=== PATIENT | male | born 1950 | race Caucasian/White ===

== ENCOUNTER 2019-07-10 13:58 | Inpatient (IN) | payer OTHER ==
[~2019-07-10] VITALS: Ht 182.9 cm; Wt 93.0 kg
--- NOTE | ~2019-07-10 | HEMODYNAMI ---
PATIENT:LA BAXTER MEDICAL RECORD: [id number] : 46 LOCATION:D.KS D.2236 ADMISSION DATE: 07/10/19 Generatedon:07/15/201914:10 Patient name: LA BAXTER Patient #: [id number] SSN: : 1950 Date of study: 07/15/2019 Page: Of Hemodynamic Procedure Report Patient Data Patient Demographics Procedure consent was obtained First Name: LA Gender: Male Last Name: VEE : 1950 Patient #: [id number] Age: 68 year(s) Race: Unknown Additional ID: [id number] Contact details Address: [address] [place] [address] State: [place] City: [facility] Zip code: [address] Past Medical History Allergies: No known allergies Admission Admission Data Admission Date: 07/10/2019 Admission Time: 20:03 Room #: 2236 Procedure Procedure Types Cath Procedure Peripheral Cath Diagnostic Procedure Miscellaneous Epidural Steroid Injection Procedure Description Procedure Date Procedure Date: 07/15/2019 Procedure Start Time: 13:58 Procedure Staff Name Function Akash Hwang MD Performing Physician Geronimo Stahl RT Monitor Vivi Perez RN Nurse Rachelle Block RN Nurse Procedure Data Cath Procedure Fluoroscopy Diagnostic fluoroscopy Total fluoroscopy Time: 0.1 time: 0.1 min min Diagnostic fluoroscopy Total fluoroscopy dose: 1 dose: 1 mGy mGy Hemodynamics Rest Pre Cath Intra NCS Post Cath Procedure Log Time Note 13:55:41 Vivi Perez RN sent for patient. Start room use. 13:55:59 Patient received from Other to IR Alert and oriented. Tansferred to table in Supine position. 13:56:02 Signed procedure consent form obtained from patient. 13:56:03 Correct patient and procedure confirmed by team. 13:56:07 Pre-procedure instructions explained to patient. 13:56:07 Pre-op teaching completed and patient verbalized understanding. 13:56:14 Patient allergic to No known allergies 13:56:23 Is patient on blood thinner?No 13:56:30 Lumbar area was prepped with betadine and draped in sterile fashion 13:56:44 KIT EPIDURAL CATHETERIZATION opened to sterile field. 13:58:08 Physician arrived 13:58:08 --------ALL STOP TIME OUT------ 13:58:09 Final Timeout: patient, procedure, and site verified with staff and physician. All members of the team are in agreement. 13:58:14 Lumbar site verified by team. 13:58:22 Sedation plan: IV Moderate Sedation Medication:Lidocaine 13:58:44 Procedure started. 13:58:44 Full Disclosure recording started 13:58:49 Local anesthetic to Lumbar area with Lidocaine 1% by Akash Hwang MD.INITIAL ACCESS ONLY 14:08:52 Procedure ended.(Physican Out) 14:09:09 Fluoroscopy time 00.10 minutes. 14:09:12 Fluoroscopy dose: 1 mGy 14:09:12 Flurop Dose total: 1 14:09:42 bandaide applied site stable pt sent to room Device Usage Item Name Manufacture Quantity Catalog Hospital Part Current Minima l Lot# / Number Charge Number Stock Stock Serial# Code KIT EPIDURAL Teleflex 1 [id number] CATHETERIZATION Signature Audit [place] Stage Time Signature Unsigned Intra-Procedure 07/15/2019 Geronimo 2:09:59 PM Maribeth RT (R) (CV) [address] [address] [place] [address]
[2019-07-10] MEDS ORDERED: VITAMIN B-121000 MCG PO (14:07)
[2019-07-10] MEDS ORDERED: SEROQUEL25 MG PO (14:08)
[2019-07-10] MEDS ORDERED: DONEPEZIL HCL10 MG PO (14:08)
[2019-07-10] MEDS ORDERED: HYTRIN1 MG PO (14:09)
[2019-07-10 14:42] LABS: BASOPHILS 0.1 % (0-2); EOSINOPHILS 0 % (0-7); HEMATOCRIT 42.3 % (42.0-54.0); HEMOGLOBIN 14.3 g/dL (13.5-17.5); IMMATURE GRANULOCYTES 0.4 % (0-5); LYMPHOCYTES 8.6 % (15-50); MCH 31.2 pg (26.0-34.0); MCHC 33.8 g/dL (31.0-37.0); MCV 92.4 fL (80.0-100.0); MEAN PLATELET VOLUME 10.1 fL (7.4-10.4); MONOCYTES 4.2 % (2-11); NEUTROPHILS 86.7 % (40-80); PLATELET COUNT 301 10x3/uL (130-400); RBC 4.58 10x6/uL (4.20-6.10); RDW 12.3 % (11.5-14.5); WBC 13.1 10x3/uL (4.8-10.8)
[2019-07-10 14:49] LABS: INR 4.82 (0.85-1.17); PROTIME 44.1 SECONDS (11.6-15.0)
[2019-07-10 14:57] LABS: APTT 42.4 SECONDS (22.8-39.4)
[2019-07-10 15:22] LABS: ALKALINE PHOSPHATASE 95 U/L (30-120); ALT (SGPT) 21 U/L (10-68); AMYLASE - SERUM 108 U/L (25-115); BILIRUBIN - TOTAL 0.71 mg/dL (0.2-1.3); CALCIUM 9.2 mg/dL (8.5-10.1); CARBON DIOXIDE 25.5 mmol/L (21.0-32.0); CKMB 0.1 U/L (0.0-3.6); CREATINE KINASE 58 UL (21-232); CREATININE - SERUM 0.8 mg/dL (0.6-1.3); GLUCOSE 148 mg/dL (74-106); LIPASE 232 U/L (73-393); PROTEIN - SERUM 8.5 g/dL (6.4-8.2); UREA NITROGEN 12 mg/dL (7-18); eGFR NON AFRICAN AMERICAN > 90 mL/min (90-120)
--- NOTE | 2019-07-10 15:33 | NUR ---
PTS SHIRTS HAD TO CUT OFF, DUE TO EMESIS ALL OVER THEM AND UNABLE TO ASSIST WITH TAKING THEM OFF.
[2019-07-10 15:38] LABS: ALBUMIN 4.2 g/dL (3.4-5.0); CALC OSMOLALITY 281 mosm/kg (275-300); CHLORIDE - SERUM 102 mmol/L (98-107); POTASSIUM - SERUM 4.4 mmol/L (3.5-5.1); SODIUM 140 mmol/L (136-145); TROPONIN-I < 0.017 ng/mL (0.000-0.060)
[2019-07-10 15:39] LABS: MAGNESIUM - SERUM 2.4 mg/dL (1.8-2.4)
--- NOTE | 2019-07-10 16:04 | NUR ---
AT BEDSIDE, STATES SHE HAD PT CHECKED FOR A UTI YESTERDAY AND DOES NOT WANT IT DONE TODAY
--- NOTE | 2019-07-10 17:40 | NUR ---
PT ACTIVELY VOMITING AT THIS TIME. PT VOMITED UP MAG CITRATE.
[2019-07-10 17:45] VITALS: BP 169/83
--- NOTE | 2019-07-10 17:45 | NUR ---
STATING PT IS IN "HORRIBLE PAIN" AND NEEDS SOMETHING FOR PAIN RELIEF. ADVISED EDP ANJEL MCCANN
[2019-07-10 19:13] VITALS: BP 166/93
[2019-07-10 19:33] LABS: BILIRUBIN NEGATIVE (NEGATIVE); GLUCOSE NEGATIVE (NEGATIVE); KETONE NEGATIVE (NEGATIVE); NITRITE NEGATIVE (NEGATIVE); UROBILINOGEN NORMAL (NORMAL)
--- NOTE | 2019-07-10 22:07 | NUR ---
PT ARRIVED ON UNIT VIA STRETCHER ESCORTED BY ER NURSE. TRANSFERRED TO BED AND CHANGED BRIEF AND BED PADS DUE TO INCONTINENCE. POSITIONED IN BED FOR COMFORT AND ACTIVATED BED ALARM FOR SAFETY.
[2019-07-10 22:11] VITALS: BP 142/55; BMI 27.8
--- NOTE | 2019-07-10 22:50 | NUR ---
STARTED IV FLUIDS AND ANTIBIOTICS PER ORDER. GAVE LACTULOSE PO WITH WIFES ASSISTANCE.
[2019-07-11] VITALS: BP 142/55
--- NOTE | 2019-07-11 01:00 | NUR ---
PT REFUSING TELEMETRY....WILL NOT KEEP ON. COMPLETED ORDER AND RETURNED TELEMETRY UNIT TO PRESETTER OPERATOR.
--- NOTE | 2019-07-11 01:30 | NUR ---
GAVE MORPNINE 2 MG IVP FOR C/O PAIN IN BACK.
--- NOTE | 2019-07-11 03:50 | NUR ---
PT HAS HAD X5 LOOSE INCONTINENT STOOLS SINCE ARRIVING ON UNIT.
[2019-07-11 04:00] VITALS: BP 146/71
[2019-07-11 06:50] LABS: BASOPHILS 0.2 % (0-2); EOSINOPHILS 0.3 % (0-7); HEMATOCRIT 36.8 % (42.0-54.0); HEMOGLOBIN 12.1 g/dL (13.5-17.5); IMMATURE GRANULOCYTES 0.2 % (0-5); LYMPHOCYTES 24.7 % (15-50); MCH 30.6 pg (26.0-34.0); MCHC 32.9 g/dL (31.0-37.0); MCV 92.9 fL (80.0-100.0); MEAN PLATELET VOLUME 10.4 fL (7.4-10.4); MONOCYTES 11.4 % (2-11); NEUTROPHILS 63.2 % (40-80); PLATELET COUNT 298 10x3/uL (130-400); RBC 3.96 10x6/uL (4.20-6.10); RDW 12.7 % (11.5-14.5); WBC 13.3 10x3/uL (4.8-10.8)
[2019-07-11 06:56] LABS: ALKALINE PHOSPHATASE 73 U/L (30-120); ALT (SGPT) 20 U/L (10-68); BILIRUBIN - TOTAL 0.62 mg/dL (0.2-1.3); CALCIUM 8.3 mg/dL (8.5-10.1); CARBON DIOXIDE 29.4 mmol/L (21.0-32.0); CHLORIDE - SERUM 107 mmol/L (98-107); CREATININE - SERUM 0.9 mg/dL (0.6-1.3); POTASSIUM - SERUM 4.2 mmol/L (3.5-5.1); SODIUM 142 mmol/L (136-145); UREA NITROGEN 10 mg/dL (7-18); eGFR NON AFRICAN AMERICAN 89 mL/min (90-120)
[2019-07-11 06:57] LABS: CALC OSMOLALITY 281 mosm/kg (275-300); GLUCOSE 97 mg/dL (74-106)
[2019-07-11 07:20] LABS: APTT 32.6 SECONDS (22.8-39.4); INR 1.06 (0.85-1.17); PROTIME 13.7 SECONDS (11.6-15.0)
[2019-07-11 08:40] VITALS: BP 145/74
[2019-07-11 12:33] VITALS: BP 123/56
[2019-07-11 15:05] LABS: % SATURATION 18 % (15-55); IRON 61 ug/dl (35-150); TOTAL IRON BIND CAPACITY 330 ug/dl (260-445); UNSAT IRON BIND CAPACITY 269 ug/dl (150-375)
[2019-07-11 17:10] LABS: ERYTHROCYTE SEDIMENTATION RATE 28 mm/hr (0-20)
[2019-07-11 17:21] VITALS: BP 115/68
--- NOTE | 2019-07-11 18:45 | NUR ---
ASSIST TO BATHROOM AND BACK TO BED.FALL PREVENTION IN PLACE WITH HANSA MAT.CONT PLAN OF CARE
--- NOTE | 2019-07-11 19:00 | NUR ---
BEDSIDE REPORT RECEIVED AND CARE OF PT ASSUMED. PT LYING IN SUPINE POSITION WITH EYES CLOSED. IV TO RIGHT AC PATENT WITH NS INFUSING AT 75 ML/HR. FAMILY MEMBERS ARE AT BEDSIDE.
[2019-07-11 19:30] VITALS: BP 134/53
--- NOTE | 2019-07-11 20:53 | NUR ---
HS MEDICATIONS GIVEN. HELD LACTULOSE PT HAS HAD 12 BMS SINCE NOON TODAY. WILL CONTINUE TO MONITOR FOR NEEDS. IS AT BEDSIDE.
--- NOTE | 2019-07-11 23:00 | NUR ---
PT PULLED OUT IV WITH CATHETER TIP INTACT...BLOOD ALL OVER BEDDING. ASSISTED PT UP TO TOILET WHILE BED WAS CHANGED. POSITIONED FOR COMFORT. RE-SITED IV TO RIGHT FA USING 20 GUAGE CATHETER IN ONE STICK. WRAPPED WITH KERLEX TO TRY TO PREVENT PT FROM PULLING OUT. IS AT BEDSIDE.
[2019-07-12] VITALS: BP 130/52
--- NOTE | 2019-07-12 03:10 | NUR ---
GAVE MORPHINE IVP PER PRN ORDER FOR C/O PAIN IN BACK AND LEGS. PT YELLS OUT WHEN BEING TURNED WITH PAIN ESPECIALLY IN LEGS.
[2019-07-12 04:00] VITALS: BP 138/57
--- NOTE | 2019-07-12 06:50 | NUR ---
CONFUSED, A&O TO SELF ONLY. UP WITH ASSIST. NO C/O PAIN. NO S/S OF ACUTE DISTRESS NOTED. INCONTINENT AT TIMES. IV TO RIGHT FOREARM, NS INFUSING @ 75ML/HR. SITE PATENT WITHOUT REDNESS OR SWELLING. HANSA ALARM ON. AT BEDSIDE. PATIENT A DNR. DENIES ANY NEEDS AT THIS TIME. CALL LIGHT IN REACH. WILL CONTINUE TO MONITOR.
[2019-07-12 08:50] VITALS: BP 127/59
[2019-07-12 09:54] LABS: BASOPHILS 0.5 % (0-2); EOSINOPHILS 1.7 % (0-7); HEMATOCRIT 38.8 % (42.0-54.0); HEMOGLOBIN 12.6 g/dL (13.5-17.5); IMMATURE GRANULOCYTES 0.3 % (0-5); LYMPHOCYTES 24.3 % (15-50); MCH 30.6 pg (26.0-34.0); MCHC 32.5 g/dL (31.0-37.0); MCV 94.2 fL (80.0-100.0); MEAN PLATELET VOLUME 9.9 fL (7.4-10.4); MONOCYTES 10.2 % (2-11); PLATELET COUNT 260 10x3/uL (130-400); RBC 4.12 10x6/uL (4.20-6.10); RDW 12.8 % (11.5-14.5)
[2019-07-12 09:57] LABS: WBC 9.8 10x3/uL (4.8-10.8)
[2019-07-12 10:06] LABS: CALC OSMOLALITY 274 mosm/kg (275-300); CALCIUM 8.3 mg/dL (8.5-10.1); CARBON DIOXIDE 27.2 mmol/L (21.0-32.0); CHLORIDE - SERUM 104 mmol/L (98-107); GLUCOSE 131 mg/dL (74-106); POTASSIUM - SERUM 4.1 mmol/L (3.5-5.1); SODIUM 137 mmol/L (136-145); UREA NITROGEN 10 mg/dL (7-18); eGFR NON AFRICAN AMERICAN 78 mL/min (90-120)
--- NOTE | 2019-07-12 10:16 | NUR ---
I have reviewed this patient and I concur with the Shift Assessment completed by the Licensed Practical Nurse today this shift.
[2019-07-12 13:54] VITALS: BP 132/62
[2019-07-12 14:20] VITALS: Ht 182.9 cm; Wt 93.0 kg
[2019-07-12 16:19] VITALS: BP 138/61
--- NOTE | 2019-07-12 18:12 | NUR ---
RESTING IN BED WITH EYES OPEN. NO C/O PAIN. NO S/S OF ACUTE DISTRESS NOTED. DENIES ANY NEEDS AT THIS TIME. FAMILY AT BEDSIDE. HANSA ALARM ON. WILL CONTINUE TO MONITOR.
[2019-07-12 19:30] VITALS: BP 135/79
--- NOTE | 2019-07-12 20:00 | NUR ---
ALERT CONFUSED RESTING IN BED, AT BEDSIDE, DENIES PAIN OR NEEDS AT THIS TIME, SEE SHIFT ASSESSMENT, CALL LIGHT IN REACH
--- NOTE | 2019-07-12 22:00 | NUR ---
CALL TO NNAMDI HOOK DOCK LOADER, PT VERY RESTLESS PULLING AT IV AND REFUSING TO KEEP TELEMENTRY ON AND STATES THAT THEY GIVE HIM SEROQUEL AT PRISON WHEN HE GETS LIKE THAT, ORDER RECIEVED FOR SERAQUIL, HS NOTIFIED TO PULL PHARMACY HAS GONE
--- NOTE | 2019-07-12 22:30 | NUR ---
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
[2019-07-13] VITALS: BP 137/55
[2019-07-13 04:00] VITALS: BP 136/56
[2019-07-13 05:08] LABS: BASOPHILS 0.5 % (0-2); EOSINOPHILS 2.5 % (0-7); HEMATOCRIT 36.7 % (42.0-54.0); HEMOGLOBIN 11.9 g/dL (13.5-17.5); IMMATURE GRANULOCYTES 0.2 % (0-5); LYMPHOCYTES 30.5 % (15-50); MCH 30.1 pg (26.0-34.0); MCHC 32.4 g/dL (31.0-37.0); MCV 92.9 fL (80.0-100.0); MEAN PLATELET VOLUME 10.2 fL (7.4-10.4); MONOCYTES 11.7 % (2-11); NEUTROPHILS 54.6 % (40-80); PLATELET COUNT 256 10x3/uL (130-400); RBC 3.95 10x6/uL (4.20-6.10); RDW 12.6 % (11.5-14.5); WBC 10.1 10x3/uL (4.8-10.8)
[2019-07-13 05:14] LABS: CALC OSMOLALITY 278 mosm/kg (275-300); CALCIUM 8.2 mg/dL (8.5-10.1); CARBON DIOXIDE 29.2 mmol/L (21.0-32.0); CHLORIDE - SERUM 106 mmol/L (98-107); GLUCOSE 103 mg/dL (74-106); POTASSIUM - SERUM 3.8 mmol/L (3.5-5.1); SODIUM 141 mmol/L (136-145); UREA NITROGEN 8 mg/dL (7-18); eGFR NON AFRICAN AMERICAN 78 mL/min (90-120)
--- NOTE | 2019-07-13 06:50 | NUR ---
RESTING IN BED WITH EYES CLOSED. RESPIRATIONS EVEN AND UNLABORED. FAMILY AT BEDSIDE. NO S/S OF ACUTE DISTRESS NOTED. UP WITH ASSIST. IV TO RIGHT FOREARM, NS INFUSING @ 75ML/HR. SITE PATENT WITHOUT REDNESS OR SWELLING. WRAPPED IN KERLEX. DENIES ANY NEEDS AT THIS TIME. CALL LIGHT IN REACH. WILL CONTINUE TO MONITOR.
--- NOTE | 2019-07-13 07:40 | MORECARE ---
CASE MANAGEMENT DISCHARGE SUMMARY PATIENT: LA FERGUSON UNIT: [id number] ADM DATE: 07/10/19 AGE: 68 : 48 SEX: M ROOM/BED: D.2236 AUTHOR: JÚNIOR TRAN PHYSICIAN: REFERRING PHYSICIAN: MALA HAYDEN DO DATE OF SERVICE: 07/13/19 Discharge Plan Patient Name: LA FERGUSON Facility: [facility]:[place] : 1950 Planned Disposition: Assisted Living Anticipated Discharge Date: Discharge Date: Expected LOS: Initial Reviewer: [email or web address] Initial Review Date: 07/13/2019 Generated: 07/13/19 8:40 am DCP- Discharge Planning Updated by [email or web address]: Mary Villaseñor on 07/12/19 4:[address] [facility], and informed of patients hospital admission. DCPIA - Discharge Planning Initial Assessment Updated by [email or web address]: Mary Villaseñor on 07/13/19 7:36 am * Is the patient Alert and Oriented? Yes * How many steps to enter\exit or inside your home? 0/0 * PCP Dr. Ashley Ambrosio at [facility] * Preadmission Environment Assisted Living * Facility Name [facility] * ADLs Partial Dependent * Partial ADLs (Assistance needed) Dressing Medication Management Transfers * Equipment None * List name and contact numbers for known caregivers / representatives who currently or will assist patient after discharge: Viv Ferguson - spouse - [phone] * Verbal permission to speak to the caregivers and representatives has been obtained from the patient. Yes * Community resources currently utilized Assisted Living * Additional services required to return to the preadmission environment? No * Can the patient safely return to the preadmission environment? Yes * Has this patient been hospitalized within the prior 30 days at any hospital? No Patient Name: LA FERGUSON Page [id number] at 0740 All edits/amendments must be made on the electronic document DICTATION DATE: 07/13/19739 TEACHER LIP READING: NIMO 07/13/19739 RPT#: [id number] DC DATE: STATUS: ADM IN [facility] [address] [place] [address] END OF REPORT
--- NOTE | 2019-07-13 07:47 | MORECARE ---
CASE MANAGEMENT DISCHARGE SUMMARY PATIENT: LA FERGUSON UNIT: [id number] ADM DATE: 07/10/19 AGE: 68 : 48 SEX: M ROOM/BED: D.2236 AUTHOR: JÚNIOR TRAN PHYSICIAN: REFERRING PHYSICIAN: MALA HAYDEN DO DATE OF SERVICE: 07/13/19 Discharge Plan Patient Name: LA FERGUSON Facility: [facility]:[place] : 1950 Planned Disposition: Assisted Living Anticipated Discharge Date: Discharge Date: Expected LOS: Initial Reviewer: [email or web address] Initial Review Date: 07/13/2019 Generated: 07/13/19 8:47 am Comments DCP- Discharge Planning Updated by [email or web address]: Mary Villaseñor on 07/13/19 6:[address] Patient Name: LA FERGUSON Admission Status: ER Accout number: [id number] Admission Date: 07-10-2019 : 1950 Admission Diagnosis: Attending: MALA HAYDEN Current LOS: 3 Anticipated DC Date: Planned Disposition: Assisted Living Primary Insurance: [employer] Discharge Planning Comments: CM met with patient and his to discuss discharge planning/needs. His states he lives at [facility] and the plan is to return on discharge. She states they will transport him back when he is ready. She states typically he does not use any equipment, he walks unaided. States with his "bulging discs he cannot walk." I discussed rehab, home health and DME needs, she denies needs at this time. CM will continue to follow and assist with discharge planning/needs. Powder Coat Painter: Mary Villaseñor DCP- Discharge Planning Updated by [email or web address]: Mary Villaseñor on 07/12/19 4:[address] CM called [facility], and informed of patients hospital admission. DCPIA - Discharge Planning Initial Assessment Updated by [id number]: Mary Villaseñor on 07/13/19 7:36 am * Is the patient Alert and Oriented? Yes * How many steps to enter\\exit or inside your home? 0/0 * PCP Dr. Ashley Ambrosio at [facility] * Preadmission Environment Assisted Living * Facility Name [facility] * ADLs Partial Dependent * Partial ADLs (Assistance needed) Dressing Medication Management Transfers * Equipment None * List name and contact numbers for known caregivers / representatives who currently or will assist patient after discharge: Viv Ferguson - spouse - [phone] * Verbal permission to speak to the caregivers and representatives has been obtained from the patient. Yes * Community resources currently utilized Assisted Living * Additional services required to return to the preadmission environment? No * Can the patient safely return to the preadmission environment? Yes * Has this patient been hospitalized within the prior 30 days at any hospital? No Last DP export: 07/13/19 6:40 a Patient Name: LA FERGUSON Page [id number] at 0747 All edits/amendments must be made on the electronic document DICTATION DATE: 07/13/19746 ELECTRONIC WARFARE TECHNICAL: NIMO 07/13/19746 RPT#: [id number] DC DATE: STATUS: ADM IN [facility] [address] [place] [address] END OF REPORT
[2019-07-13 08:30] VITALS: BP 130/64
--- NOTE | 2019-07-13 10:37 | NUR ---
I have reviewed this patient and I concur with the Shift Assessment completed by the Licensed Practical Nurse today this shift.
[2019-07-13 13:23] VITALS: BP 120/64
[2019-07-13 16:14] VITALS: BP 141/60
--- NOTE | 2019-07-13 16:52 | NUR ---
PATIENT PULLED OUT IV, CATHETER TIP INTACT. RESITED IV TO RIGHT FOREARM, 22 GA X1 STICK BLOOD RETURN PRESENT. SITE PATENT. PATIENT VERY CONFUSED. FAMILY AT BEDSIDE. CALL LIGHT IN REACH. HANSA ALARM ON. DENIES ANYTHING FURTHER AT THIS TIME. WILL CONTINUE TO MONITOR.
--- NOTE | 2019-07-13 18:05 | NUR ---
SITTING UP IN BED EATING SUPPER. FAMILY AT BEDSIDE. NO C/O PAIN. NO S/S OF ACUTE DISTRESS NOTED. DENIES ANY NEEDS AT THIS TIME. CALL LIGHT IN REACH. WILL CONTINUE TO MONITOR.
--- NOTE | 2019-07-13 19:00 | NUR ---
BEDSIDE REPORT RECEIVED AND CARE OF PT ASSUMED. PT LYING IN SUPINE POSITION WITH SITTER AT BEDSIDE. IV TO RIGHT FA PATENT WITH NS INFUSING AT 75 ML/HR. BED ALARM IN USE.
--- NOTE | 2019-07-13 19:17 | NUR ---
PATIENT REFUSING TO KEEP FLEET SALES MANAGER ON.
[2019-07-13 20:00] VITALS: BP 159/66
--- NOTE | 2019-07-13 20:50 | NUR ---
HS MEDICATIONS GIVEN. WILL CONTINUE TO MONITOR FOR NEEDS.
--- NOTE | 2019-07-14 01:15 | NUR ---
PT HAD LARGE INCONTINENT, LOOSE STOOL. CLEANSED PT ANS CHANGED ALL LINENS. HAD TO BRING IN MALE NURSE, PT THREATENING TO HIT US BECAUSE WE NEEDED HIM TO TURN TO BE CHANGED.
[2019-07-14 04:00] VITALS: BP 125/71
[2019-07-14 07:06] LABS: BASOPHILS 0.4 % (0-2); EOSINOPHILS 2.9 % (0-7); HEMOGLOBIN 12.3 g/dL (13.5-17.5); IMMATURE GRANULOCYTES 0.3 % (0-5); LYMPHOCYTES 27.5 % (15-50); MCH 30.4 pg (26.0-34.0); MCHC 32.4 g/dL (31.0-37.0); MCV 93.8 fL (80.0-100.0); MONOCYTES 11.7 % (2-11); NEUTROPHILS 57.2 % (40-80); PLATELET COUNT 242 10x3/uL (130-400); RBC 4.05 10x6/uL (4.20-6.10); RDW 12.8 % (11.5-14.5); WBC 9.5 10x3/uL (4.8-10.8)
--- NOTE | 2019-07-14 07:10 | NUR ---
PT RESTING IN BED. NO SIGNS OF DISTRESS. IV TO RIGHT FORARM PATENT NO REDNESS OR TENDERNESS. ALL FALL PRECAUTIONS IN PLACE. DENIES ANY FUTHER NEED AT THIS TIME. CALL LIGHT IN REACH. BED LOW POSITION. FAMILY AT BEDSIDE AT THIS TIME.
[2019-07-14 07:35] LABS: CALC OSMOLALITY 278 mosm/kg (275-300); CALCIUM 8.5 mg/dL (8.5-10.1); CARBON DIOXIDE 25.8 mmol/L (21.0-32.0); CHLORIDE - SERUM 107 mmol/L (98-107); CREATININE - SERUM 0.8 mg/dL (0.6-1.3); GLUCOSE 100 mg/dL (74-106); SODIUM 141 mmol/L (136-145); UREA NITROGEN 7 mg/dL (7-18); eGFR NON AFRICAN AMERICAN > 90 mL/min (90-120)
[2019-07-14 08:04] VITALS: BP 152/58
--- NOTE | 2019-07-14 13:14 | NUR ---
NUTRITION F/U PT WITH GOOD INTAKE BREAKFAST THIS AM PER SPOUSE REPORT. STATES SHE FED HIM AND HE DID WELL. WILL CONTINUE TO PROVIDE DIET, MONITOR PO INTAKE. RD FOLLOWING
--- NOTE | 2019-07-14 15:30 | MORECARE ---
CASE MANAGEMENT DISCHARGE SUMMARY PATIENT: LA FERGUSON UNIT: [id number] ADM DATE: 07/10/19 AGE: 68 : 48 SEX: M ROOM/BED: D.2236 AUTHOR: JÚNIOR TRAN PHYSICIAN: REFERRING PHYSICIAN: MALA HAYDEN DO DATE OF SERVICE: 07/14/19 Discharge Plan Patient Name: LA FERGUSON Facility: [facility]:[place] : 1950 Planned Disposition: Assisted Living Anticipated Discharge Date: Discharge Date: Expected LOS: Initial Reviewer: [email or web address] Initial Review Date: 07/13/2019 Generated: 07/14/19 4:29 pm Comments DCP- Discharge Planning Updated by [email or web address]: Mary Villaseñor on 07/14/19 2:[address] Patient had lovenox injection today, so procedure will be done tomorrow. I met with his and informed her of this. states [facility] has [facility] and his therapist, Shelton Rahman, will see him at [place] after discharge. He also has a nurse check on him 3 times a week with [facility] home care, so she states he does not need home health when discharged. Plan is to return to [place] with hospice home care. States he has his own apartment. The nurses cue him to dress and for meals. The nurses give his medication. His assists him with showers. CM will continue to follow and assist with discharge planning/needs. DCP- Discharge Planning Updated by [email or web address]: Mary Villaseñor on 07/13/19 6:[address] Patient Name: LA FERGUSON Admission Status: ER Accout number: [id number] Admission Date: 07-10-2019 : 1950 Admission Diagnosis: Attending: MALA HAYDEN Current LOS: 3 Anticipated DC Date: Planned Disposition: Assisted Living Primary Insurance: [employer] Discharge Planning Comments: CM met with patient and his to discuss discharge planning/needs. His states he lives at [facility] and the plan is to return on discharge. She states they will transport him back when he is ready. She states typically he does not use any equipment, he walks unaided. States with his "bulging discs he cannot walk." I discussed rehab, home health and DME needs, she denies needs at this time. CM will continue to follow and assist with discharge planning/needs. Final Assembly Worker: Mary Villaseñor DCP- Discharge Planning Updated by [email or web address]: Mary Villaseñor on 07/12/19 4:[address] [facility] called [facility], and informed of patients hospital admission. DCPIA - Discharge Planning Initial Assessment Updated by [email or web address]: Mary Villaseñor on 07/13/19 7:36 am * Is the patient Alert and Oriented? Yes * How many steps to enter\\exit or inside your home? 0/0 * PCP Dr. Ashley Ambrosio at [facility] * Preadmission Environment Assisted Living * Facility Name [place] [place] * ADLs Partial Dependent * Partial ADLs (Assistance needed) Dressing Medication Management Transfers * Equipment None * List name and contact numbers for known caregivers / representatives who currently or will assist patient after discharge: Viv Ferguson - [facility] - [phone] * Verbal permission to speak to the caregivers and representatives has been obtained from the patient. Yes * Community resources currently utilized Assisted Living * Additional services required to return to the preadmission environment? No * Can the patient safely return to the preadmission environment? Yes * Has this patient been hospitalized within the prior 30 days at any hospital? No Last DP export: 07/13/19 6:47 a Patient Name: LA FERGUSON Page [id number] at 1530 All edits/amendments must be made on the electronic document DICTATION DATE: 07/14/19 152 AIRPLANE TECHNICIAN: NIMO 07/14/19 1529 RPT#: [id number] DC DATE: STATUS: ADM IN [facility] [address] [place] [address] END OF REPORT
[2019-07-14 15:59] VITALS: BP 102/80
[2019-07-14 17:37] LABS: BASOPHILS 0.3 % (0-2); EOSINOPHILS 2.1 % (0-7); HEMATOCRIT 37.2 % (42.0-54.0); HEMOGLOBIN 11.9 g/dL (13.5-17.5); IMMATURE GRANULOCYTES 0.2 % (0-5); LYMPHOCYTES 27.4 % (15-50); MCH 30.5 pg (26.0-34.0); MCV 95.4 fL (80.0-100.0); MEAN PLATELET VOLUME 10.2 fL (7.4-10.4); MONOCYTES 12.9 % (2-11); NEUTROPHILS 57.1 % (40-80); PLATELET COUNT 254 10x3/uL (130-400); RDW 12.9 % (11.5-14.5); WBC 9.1 10x3/uL (4.8-10.8)
[2019-07-14 17:51] LABS: INR 1.04 (0.85-1.17); PROTIME 13.5 SECONDS (11.6-15.0)
[2019-07-14 17:55] LABS: CALC OSMOLALITY 279 mosm/kg (275-300); CALCIUM 8.4 mg/dL (8.5-10.1); CHLORIDE - SERUM 108 mmol/L (98-107); CREATININE - SERUM 0.9 mg/dL (0.6-1.3); GLUCOSE 107 mg/dL (74-106); POTASSIUM - SERUM 3.9 mmol/L (3.5-5.1); SODIUM 141 mmol/L (136-145); eGFR NON AFRICAN AMERICAN 89 mL/min (90-120)
[2019-07-14 17:57] LABS: UREA NITROGEN 9 mg/dL (7-18)
--- NOTE | 2019-07-14 19:36 | NUR ---
I have reviewed this patient and I concur with the Shift Assessment completed by the Licensed Practical Nurse today this shift.
[2019-07-14 21:15] VITALS: BP 147/68
[2019-07-15 01:44] VITALS: BP 139/77
[2019-07-15 05:12] LABS: BASOPHILS 0.4 % (0-2); EOSINOPHILS 2.4 % (0-7); HEMATOCRIT 37.1 % (42.0-54.0); IMMATURE GRANULOCYTES 0.3 % (0-5); LYMPHOCYTES 31.7 % (15-50); MCH 30.5 pg (26.0-34.0); MCHC 32.3 g/dL (31.0-37.0); MCV 94.2 fL (80.0-100.0); MEAN PLATELET VOLUME 10.2 fL (7.4-10.4); MONOCYTES 12.9 % (2-11); NEUTROPHILS 52.3 % (40-80); PLATELET COUNT 274 10x3/uL (130-400); RBC 3.94 10x6/uL (4.20-6.10); RDW 12.7 % (11.5-14.5); WBC 9.6 10x3/uL (4.8-10.8)
[2019-07-15 05:32] LABS: CALC OSMOLALITY 276 mosm/kg (275-300); CALCIUM 8.3 mg/dL (8.5-10.1); CARBON DIOXIDE 29.7 mmol/L (21.0-32.0); CHLORIDE - SERUM 105 mmol/L (98-107); GLUCOSE 104 mg/dL (74-106); POTASSIUM - SERUM 3.6 mmol/L (3.5-5.1); SODIUM 140 mmol/L (136-145); UREA NITROGEN 7 mg/dL (7-18); eGFR NON AFRICAN AMERICAN 78 mL/min (90-120)
[2019-07-15 06:48] VITALS: BP 158/82
--- NOTE | 2019-07-15 06:55 | NUR ---
CONFUSED, RESTING IN BED WITH EYES OPEN. FAMILY AT BEDSIDE. NO C/O PAIN. NO S/S OF ACUTE DISTRESS NOTED. IV OUT. UP WITH ASSIST. SCDS ON. INCONTINENT OF B&B AT TIMES. PATIENT DNR. DENIES ANY NEEDS AT THIS TIME. CALL LIGHT IN REACH. WILL CONTINUE TO MONITOR.
--- NOTE | 2019-07-15 08:11 | NUR ---
IV RESITED TO LEFT FOREARM, 22 GA X3 STICKS. WRAPPED IN KERLEX AND JANA WRAP WITH SLEEVE ON.
[2019-07-15 09:01] VITALS: BP 142/61
[2019-07-15 13:12] VITALS: BP 107/65
[2019-07-15 16:44] VITALS: BP 104/67
--- NOTE | 2019-07-15 17:35 | NUR ---
I have reviewed this patient and I concur with the Shift Assessment completed by the Licensed Practical Nurse today this shift.
--- NOTE | 2019-07-15 19:21 | NUR ---
RESTING IN BED. AT BEDSIDE. DENIES ANY NEEDS AT THIS TIME. CALL LIGHT IN REACH. WILL CONTINUE TO MONITOR.
[2019-07-15 20:00] VITALS: BP 155/79
[2019-07-16] VITALS: BP 158/57
--- NOTE | 2019-07-16 03:10 | NUR ---
PATIENT ALERT AND PLEASNTLY CONFUSED. AT BEDSIDE. NO IV IN PLACE. ON ROOM AIR NO S/S OF DESTRESS.
--- NOTE | 2019-07-16 06:55 | NUR ---
RESTING IN BED. SPOUSE AT BEDSIDE. NO C/O PAIN. NO S/S OF ACUTE DISTRESS NOTED. UP WITH ASSIST. NO IV. INCONTINENT OF BOWEL AT TIMES. DENIES ANY NEEDS AT THIS TIME. CALL LIGHT IN REACH. WILL CONTINUE TO MONITOR.
[2019-07-16 07:11] LABS: BASOPHILS 0 % (0-2); EOSINOPHILS 0 % (0-7); HEMATOCRIT 38.4 % (42.0-54.0); HEMOGLOBIN 12.9 g/dL (13.5-17.5); IMMATURE GRANULOCYTES 0.3 % (0-5); LYMPHOCYTES 17.1 % (15-50); MCHC 33.6 g/dL (31.0-37.0); MCV 92.3 fL (80.0-100.0); MEAN PLATELET VOLUME 10.4 fL (7.4-10.4); MONOCYTES 6.7 % (2-11); NEUTROPHILS 75.9 % (40-80); PLATELET COUNT 315 10x3/uL (130-400); RBC 4.16 10x6/uL (4.20-6.10); RDW 12.4 % (11.5-14.5); WBC 10.1 10x3/uL (4.8-10.8)
[2019-07-16 07:23] LABS: CALCIUM 8.9 mg/dL (8.5-10.1); CARBON DIOXIDE 24.3 mmol/L (21.0-32.0); CHLORIDE - SERUM 106 mmol/L (98-107); CREATININE - SERUM 0.9 mg/dL (0.6-1.3); GLUCOSE 147 mg/dL (74-106); SODIUM 139 mmol/L (136-145); eGFR NON AFRICAN AMERICAN 89 mL/min (90-120)
[2019-07-16 07:24] LABS: CALC OSMOLALITY 280 mosm/kg (275-300); POTASSIUM - SERUM 4.6 mmol/L (3.5-5.1); UREA NITROGEN 12 mg/dL (7-18)
[2019-07-16 08:11] VITALS: BP 99/73
[2019-07-16 08:41] VITALS: BP 127/74
[2019-07-16] MEDS ORDERED: GABAPENTIN100 MG PO (11:40)
[2019-07-16] MEDS ORDERED: ROBAXIN PO (11:40)
[2019-07-16] MEDS ORDERED: FLORAJEN3 CAPS460 MG PO (11:40)
[2019-07-16] MEDS ORDERED: GENASYME40 MG/0.6 PO (11:40)
[2019-07-16] MEDS ORDERED: CHRONULAC30 ML PO (11:40)
[2019-07-16] MEDS ORDERED: OMNICEF300 MG PO (11:41)
[2019-07-16] MEDS ORDERED: ZITHROMAX500 MG PO (11:41)
--- NOTE | 2019-07-16 12:06 | MORECARE ---
CASE MANAGEMENT DISCHARGE SUMMARY PATIENT: LA FERGUSON UNIT: [id number] ADM DATE: 07/10/19 AGE: 68 : 48 SEX: M ROOM/BED: D.2236 AUTHOR: JÚNIOR TRAN PHYSICIAN: REFERRING PHYSICIAN: MALA HAYDEN DO DATE OF SERVICE: 07/16/19 Discharge Plan Patient Name: LA FERGUSON Facility: [facility]:[place] : 1950 Planned Disposition: Assisted Living Anticipated Discharge Date: Discharge Date: Expected LOS: Initial Reviewer: [email or web address] Initial Review Date: 07/13/2019 Generated: 07/16/19 1:05 pm Comments DCP- Discharge Planning Updated by [email or web address]: Mary Villaseñor on 07/14/19 2:[address] Patient had lovenox injection today, so procedure will be done tomorrow. I met with his and informed her of this. states patient has [facility]osp[facility] home care and his therapist, Shelton Rahman, will see him at [facility] after discharge. He also has a nurse check on him 3 times a week with [facility] home care, so she states he does not need home health when discharged. Plan is to return to [place] with hospice home care. States he has his own apartment. The nurses cue him to dress and for meals. The nurses give his medication. His assists him with showers. CM will continue to follow and assist with discharge planning/needs. DCP- Discharge Planning Updated by [email or web address]: Mary Villaseñor on 07/13/19 6:[address] Patient Name: LA FERGUSON Admission Status: ER Accout number: [id number] Admission Date: 07-10-2019 : 1950 Admission Diagnosis: Attending: MALA HAYDEN Current LOS: 3 Anticipated DC Date: Planned Disposition: Assisted Living Primary Insurance: [employer]ISTR[employer] Discharge Planning Comments: CM met with patient and his to discuss discharge planning/needs. His states he lives at [facility] and the plan is to return on discharge. She states they will transport him back when he is ready. She states typically he does not use any equipment, he walks unaided. States with his "bulging discs he cannot walk." I discussed rehab, home health and DME needs, she denies needs at this time. CM will continue to follow and assist with discharge planning/needs. Lung Puller: Mary Villaseñor DCP- Discharge Planning Updated by [id number]: Mary Villaseñor on 07/12/19 4:[address] [facility] pulp mill operator[facility], and informed of patients hospital admission. DCPIA - Discharge Planning Initial Assessment Updated by [id number]: Mary Villaseñor on 07/13/19 7:36 am * Is the patient Alert and Oriented? Yes * How many steps to enter\\exit or inside your home? 0/0 * PCP Dr. Ashley Ambrosio at [facility] * Preadmission Environment Assisted Living * Facility Name [facility] * ADLs Partial Dependent * Partial ADLs (Assistance needed) Dressing Medication Management Transfers * Equipment None * List name and contact numbers for known caregivers / representatives who currently or will assist patient after discharge: Viv Ferguson - spouse - [phone] * Verbal permission to speak to the caregivers and representatives has been obtained from the patient. Yes * Community resources currently utilized Assisted Living * Additional services required to return to the preadmission environment? No * Can the patient safely return to the preadmission environment? Yes * Has this patient been hospitalized within the prior 30 days at any hospital? No External Providers External Provider: OTHER-OTHER Next Contact Date: Service Request Date: Service Type: Resolution: Reviewer: Comments: Coverage Notice Reviewer: [email or web address] - Mary Villaseñor Notice Issued Date-Time: 07/14/2019 15:29 Notice Type: Patient Choice Letter Notice Delivered To: Family Member Relationship to Patient: Spouse Scow Hand Name: Viv Delivery Method: HAND - Hand Delivered Jayda Days: Prior Verbal Notification: Recipient Understood Notice: Yes Recipient Signature: Yes Med Rec Note Co-signed by Attending: Coverage Notice Comment: [facility] for [facility] Last DP export: 07/14/19 2:30 p Patient Name: LA FERGUSON Page 11848 at 1206 All edits/amendments must be made on the electronic document DICTATION DATE: 07/16/19 1205 MENTAL HYGIENIST: NIMO 07/16/19 1205 RPT#: [id number] DC DATE: STATUS: ADM IN [facility] [address] [place] [address] END OF REPORT
--- NOTE | 2019-07-16 12:13 | MORECARE ---
CASE MANAGEMENT DISCHARGE SUMMARY PATIENT: LA FERGUSON UNIT: [id number] ADM DATE: 07/10/19 AGE: 68 : 46 SEX: M ROOM/BED: D.2236 AUTHOR: JÚNIOR TRAN PHYSICIAN: REFERRING PHYSICIAN: MALA HAYDEN DO DATE OF SERVICE: 07/16/19 Discharge Plan Patient Name: LA FERGUSON Facility: [facility]:[place] : 1950 Planned Disposition: Assisted Living Anticipated Discharge Date: Discharge Date: Expected LOS: Initial Reviewer: [email or web address] Initial Review Date: 07/13/2019 Generated: 07/16/19 1:13 pm Comments DCP- Discharge Planning Updated by [email or web address]: Mary Villaseñor on 07/16/19 11:[address] Received discharge orders to return to [place] today. I called Jennifer at [facility] at [place] and clinical faxed. Jennifer states his will transport him there. I called his , Viv, and left a voice message that her was discharged today and to return my call. CM will continue to follow and assist with discharge planning/needs. DCP- Discharge Planning Updated by [email or web address]: Mary Villaseñor on 07/14/19 2:[address] Patient had lovenox injection today, so procedure will be done tomorrow. I met with his and informed her of this. states [facility] and his therapist, Shelton Rahman, will see him at [place] after discharge. He also has a nurse check on him 3 times a week with [facility], so she states he does not need home health when discharged. Plan is to return to [place] with hospice home care. States he has his own apartment. The nurses cue him to dress and for meals. The nurses give his medication. His assists him with showers. CM will continue to follow and assist with discharge planning/needs. DCP- Discharge Planning Updated by [email or web address]: Mary Villaseñor on 07/13/19 6:[address] Patient Name: LA FERGUSON Admission Status: ER Accout number: [id number] Admission Date: 07-10-2019 : 06-10-1951 Admission Diagnosis: Attending: MALA HAYDEN Current LOS: 3 Anticipated DC Date: Planned Disposition: Assisted Living Primary Insurance: [employer] Discharge Planning Comments: CM met with patient and his to discuss discharge planning/needs. His states he lives at [facility] and the plan is to return on discharge. She states they will transport him back when he is ready. She states typically he does not use any equipment, he walks unaided. States with his "bulging discs he cannot walk." I discussed rehab, home health and DME needs, she denies needs at this time. CM will continue to follow and assist with discharge planning/needs. Detective And Intelligence Analyst: Mary Villaseñor DCP- Discharge Planning Updated by [id number]: Mary Villaseñor on 07/12/19 4:[address] [facility] and informed of patients hospital admission. DCPIA - Discharge Planning Initial Assessment Updated by [email or web address]: Mary Villaseñor on 07/13/19 7:36 am * Is the patient Alert and Oriented? Yes * How many steps to enter\\exit or inside your home? 0/0 * PCP Dr. Ashley Ambrosio at [facility] * Preadmission Environment Assisted Living * Facility Name [place] * ADLs Partial Dependent * Partial ADLs (Assistance needed) Dressing Medication Management Transfers * Equipment None * List name and contact numbers for known caregivers / representatives who currently or will assist patient after discharge: Viv Ferguson - spouse - [phone] * Verbal permission to speak to the caregivers and representatives has been obtained from the patient. Yes * Community resources currently utilized Assisted Living * Additional services required to return to the preadmission environment? No * Can the patient safely return to the preadmission environment? Yes * Has this patient been hospitalized within the prior 30 days at any hospital? No Coverage Notice Reviewer: [id number] - Mary Villaseñor Notice Issued Date-Time: 07/14/2019 15:29 Notice Type: Patient Choice Letter Notice Delivered To: Family Member Relationship to Patient: Spouse Marketing Teacher Name: Viv Delivery Method: HAND - Hand Delivered Jayda Days: Prior Verbal Notification: Recipient Understood Notice: Yes Recipient Signature: Yes Med Rec Note Co-signed by Attending: Coverage Notice Comment: [facility] for [facility] Last DP export: 07/16/19 11:06 a Patient Name: LA FERGUSON Page [id number] at 1213 All edits/amendments must be made on the electronic document DICTATION DATE: 07/16/191212 GROUNDS MANAGER: NIMO 07/16/19 121 RPT#: [id number] DC DATE: STATUS: ADM IN [facility] [address] [place] [address] END OF REPORT
--- NOTE | 2019-07-16 15:00 | NUR ---
DISCHARGED PATIENT TO [facility] WITH VIA WHEELCHAIR. CALLED REPORT TO ERAN. WENT OVER DISCHARGE INSTRUCTIONS WITH SPOUSE, VERBALIZED UNDERSTANDING. PATIENT CONFUSED. DENIES ANYTHING FURTHER.
--- NOTE | 2019-07-19 09:17 | MORECARE ---
CASE MANAGEMENT DISCHARGE SUMMARY PATIENT: LA FERGUSON UNIT: [id number] ADM DATE: 07/10/19 AGE: 68 : 48 SEX: M ROOM/BED: D.2236 AUTHOR: JÚNIOR TRAN PHYSICIAN: REFERRING PHYSICIAN: MALA HAYDEN DO DATE OF SERVICE: 07/19/19 Discharge Plan Patient Name: LA FERGUSON Facility: [facility]:[place] : 1950 Planned Disposition: Assisted Living Anticipated Discharge Date: Discharge Date: 07/16/2019 Expected LOS: Initial Reviewer: [email or web address] Initial Review Date: 07/13/2019 Generated: 07/19/19 10:17 am Comments DCP- Discharge Planning Updated by [email or web address]: Mary Villaseñor on 07/16/19 11:[address] Received discharge orders to return to [place] today. I called Jennifer at [facility] at [place] and clinical faxed. Jennifer states his will transport him there. I called his , Viv, and left a voice message that her was discharged today and to return my call. CM will continue to follow and assist with discharge planning/needs. DCP- Discharge Planning Updated by [email or web address]: Mary Villaseñor on 07/14/19 2:[address] Patient had lovenox injection today, so procedure will be done tomorrow. I met with his and informed her of this. states patient has [facility] home [facility] and his therapist, Shelton Rahman, will see him at [place] after discharge. He also has a nurse check on him 3 times a week with [facility], so she states he does not need home health when discharged. Plan is to return to [place] with hospice home care. States he has his own apartment. The nurses cue him to dress and for meals. The nurses give his medication. His assists him with showers. CM will continue to follow and assist with discharge planning/needs. DCP- Discharge Planning Updated by [email or web address]: Mary Villaseñor on 07/13/19 6:[address] Patient Name: LA FERGUSON Admission Status: ER Accout number: [id number] Admission Date: 07-10-2019 : 1950 Admission Diagnosis: Attending: MALA HAYDEN Current LOS: 3 Anticipated DC Date: Planned Disposition: Assisted Living Primary Insurance: [employer] Discharge Planning Comments: CM met with patient and his to discuss discharge planning/needs. His states he lives at [facility] and the plan is to return on discharge. She states they will transport him back when he is ready. She states typically he does not use any equipment, he walks unaided. States with his "bulging discs he cannot walk." I discussed rehab, home health and DME needs, she denies needs at this time. CM will continue to follow and assist with discharge planning/needs. Automotive Glazier: Mary Villaseñor DCP- Discharge Planning Updated by [email or web address]: Mary Villaseñor on 07/12/19 4:[address] [facility], and informed of patients hospital admission. DCPIA - Discharge Planning Initial Assessment Updated by [id number]: Mary Villaseñor on 07/13/19 7:36 am * Is the patient Alert and Oriented? Yes * How many steps to enter\\exit or inside your home? 0/0 * PCP Dr. Ashley Ambrosio at [facility] * Preadmission Environment Assisted Living * Facility Name [place] * ADLs Partial Dependent * Partial ADLs (Assistance needed) Dressing Medication Management Transfers * Equipment None * List name and contact numbers for known caregivers / representatives who currently or will assist patient after discharge: Viv Ferguson - spouse - [phone] * Verbal permission to speak to the caregivers and representatives has been obtained from the patient. Yes * Community resources currently utilized Assisted Living * Additional services required to return to the preadmission environment? No * Can the patient safely return to the preadmission environment? Yes * Has this patient been hospitalized within the prior 30 days at any hospital? No Coverage Notice Reviewer: [id number] - Mary Villaseñor Notice Issued Date-Time: 07/14/2019 15:29 Notice Type: Patient Choice Letter Notice Delivered To: Family Member Relationship to Patient: Spouse Aerial Photographer Name: Viv Delivery Method: HAND - Hand Delivered Jayda Days: Prior Verbal Notification: Recipient Understood Notice: Yes Recipient Signature: Yes Med Rec Note Co-signed by Attending: Coverage Notice Comment: [facility] for [facility] Last DP export: 07/16/19 11:13 a Patient Name: LA FERGUSON Page [id number] at 0917 All edits/amendments must be made on the electronic document DICTATION DATE: 07/19/19916 MOCK UP ASSEMBLER: NIMO 07/19/19916 RPT#: [id number] DC DATE:07/16/19 STATUS: DIS IN [facility] [address] [place] [address] END OF REPORT
== END 2019-07-16 15:30 | DRG 177 ==
LOC: D.ER 13:58 → D.MS 20:03
PROVIDERS: Family Medicine; Internal Medicine Nephrology; Specialist; ADMIT Family Medicine; ATTEND Family Medicine
PROC: 3E0R33Z Introduction of Anti-inflammatory into Spinal Canal, Percutaneous Approach (ICD-10-PCS; principal; 2019-07-15 13:55)
DX: J69.0 Pneumonitis due to inhalation of food and vomit (principal); R53.2 Functional quadriplegia; F02.81 Dementia in other diseases classified elsewhere, unspecified severity, with behavioral disturbance; Z66 Do not resuscitate; G30.9 Alzheimer's disease, unspecified; I10 Essential (primary) hypertension; D64.9 Anemia, unspecified; M48.061 Spinal stenosis, lumbar region without neurogenic claudication; M54.16 Radiculopathy, lumbar region